=== PATIENT | male | born 1960 | race Caucasian/White ===

== ENCOUNTER 2018-05-03 07:06 | Outpatient (CLI) | payer BC ==
[2018-05-03 08:12] LABS: ALT (SGPT) 17 U/L (8-55); AST (SGOT) 21 U/L (5-34); Albumin 4.5 g/dL (3.5-5.0); Alkaline Phosphatase 75 U/L (40-150); Anion Gap 15 mmol/L (10-20); BUN (Urea Nitrogen) 14 mg/dL (8.4-25.7); Bilirubin, Total 0.5 mg/dL (0.2-1.2); Calc. Creatinine Clearance 0 mL/min (70-130); Calcium 9.6 mg/dL (7.8-10.44); Carbon Dioxide 27 mmol/L (22-29); Cardiac Risk 2.5 (Less than 4.5); Chloride 102 mmol/L (98-107); Cholesterol 157 mg/dl (< 200 Desired); Estimated GFR-MDRD 63; Globulin 2.8 g/dL (2.4-3.5); Glucose 106 mg/dL (70-105); HDL Cholesterol 63 mg/dL (>60 Neg Risk); LDL Cholesterol, Calculated 81 mg/dL; Potassium 3.7 mmol/L (3.5-5.1); Protein, Total 7.3 g/dL (6.0-8.3); Sodium 140 mmol/L (136-145); Triglycerides 67 mg/dL (Less than 150)
[2018-05-03 08:30] LABS: #Basophils 0.1 thou/uL (0.0-0.2); #Eosinphils 0.1 thou/uL (0.0-0.7); #Lymphocytes 1.5 thou/uL (1.20-3.40); #Monocytes 0.4 thou/uL (0.11-0.59); #Neutrophils 3.9 thou/uL (1.40-6.50); %Basophils 1.8 % (0.0-1.0); %Eosinophils 1.7 % (0.0-10.0); %Lymphocytes 24.3 % (21.0-51.0); %Monocytes 6.5 % (0.0-10.0); %Neutrophils 65.6 % (42.0-75.0); Hemoglobin 17.8 g/dL (14.0-18.0); Mean Corpuscular HGB CONC 33.6 g/dL (32.0-36.0); Mean Corpuscular Hemoglobin 29.9 pg (27.0-31.0); Mean Corpuscular Volume 88.9 fL (78.0-98.0); Mean Platelet Volume 7.4 fL (7.4-10.4); Platelet Count 261 thou/uL (130-400); RBC Distribution Width 11.6 % (11.5-14.5); Red Blood Cell (RBC) Count 5.95 mill/uL (4.70-6.10); White Blood Cell (WBC) Count 5.9 thou/uL (4.8-10.8)
[2018-05-03 08:33] LABS: PSA-Asymptomatic (SCREENING) 0.41 ng/mL (0-4.0); Thyroid Stimulating Hormone 1.7087 uIU/mL (0.35-4.94)
== END 2018-05-03 07:07 | disposition home or self-care (01) ==
LOC: SCSLAB 07:06
PROVIDERS: ATTEND Family Medicine
DX: Z00.00 Encounter for general adult medical examination without abnormal findings (principal); Z12.5 Encounter for screening for malignant neoplasm of prostate
CPT/HCPCS: 36415; 80053; 80061; 84443; 85025; G0103

== ENCOUNTER 2022-01-20 08:56 | Outpatient (CLI) | payer BC | END 2022-01-20 08:57 | disposition home or self-care (01) | LOC: CTENTCT 08:56 | PROVIDERS: ATTEND Otolaryngology Plastic Surgery within the Head & Neck | DX: J01.90 Acute sinusitis, unspecified (principal) | CPT/HCPCS: 70486 ==

== ENCOUNTER 2022-01-26 06:41 | Day surgery (SDC) | payer BC ==
[2022-01-25 13:26] VITALS: BMI 21.8
[~2022-01-26 06:41] MED LIST: EPINEPHrine 0.3 MG in Ophthalmic Irrigation Solution 500 ML IRR SCH
[2022-01-26] MEDS ORDERED: Phenylephrine 2.5% Ophth Soln 5 ML BOT ONE (06:59)
[2022-01-26] MEDS ORDERED: Cyclopentolate 1% Opth Drop 2 ML BOT ONE (06:59)
[2022-01-26] MEDS ORDERED: fentaNYL Citrate/PF 100 MCG/2 ML SYRINGE ONE (07:15)
[2022-01-26] MEDS ORDERED: Midazolam HCl 2 mg/2 ml Vial ONE (07:15)
[2022-01-26] MEDS ORDERED: PROPOFOL 20 ML ONE (07:15)
[2022-01-26] MEDS ORDERED: Lidocaine 1% PF 5 ML VIAL ONE (08:52)
[2022-01-26] MEDS ORDERED: Bupivacaine 0.75% 10 ML VIAL ONE (08:52)
[2022-01-26] MEDS ORDERED: Lidocaine 4% PF 5 ML AMP ONE (08:52)
[2022-01-26] MEDS ORDERED: CEFAZOLIN 1 GM VIAL ONE (08:52)
[2022-01-26] MEDS ORDERED: Maxitrol 0.1% Opth Oint 3.5 GM TUBE ONE (08:52)
[2022-01-26] MEDS ORDERED: Triamcinolone 40 MG/ML VIAL ONE (08:52)
== END 2022-01-26 10:10 | disposition home or self-care (01) ==
LOC: SDC 06:41
PROVIDERS: ATTEND Ophthalmology Retina Specialist
PROC: 08QF3ZZ Repair Left Retina, Percutaneous Approach (ICD-10-PCS; principal; 2022-01-26)
PROC: 08T53ZZ Resection of Left Vitreous, Percutaneous Approach (ICD-10-PCS; principal; 2022-01-26)
DX: H33.022 Retinal detachment with multiple breaks, left eye (principal); E78.5 Hyperlipidemia, unspecified; Z79.899 Other long term (current) drug therapy; Z88.5 Allergy status to narcotic agent
CPT/HCPCS: 67025; J0171; J0690; J2250; J2704; J3301; J3490